=== PATIENT | male | born 1945 | race Caucasian/White ===

== ENCOUNTER 2017-08-31 21:32 | Observation (INO) ==
[2017-08-31 22:20] LABS: Basophils % 0.4 %; Eosinophils # 0.3 K/mcL (0.0-0.6); Eosinophils % 4.6 %; Hematocrit 42.5 % (37.5-50.1); Hemoglobin 14.6 g/dL (12.9-16.9); Immature Granulocytes % 0.4 % (0-4); Lymphocytes # 1.4 K/mcL (0.6-4.6); Mean Corpuscular HGB Conc 34.4 g/dL (31.6-35.5); Mean Corpuscular Hemoglobin 30.4 pg (28.0-33.3); Mean Corpuscular Volume 88.5 fL (83.0-100.0); Mean Platelet Volume 9.1 fL (9.4-12.4); Monocytes # 0.7 K/mcL (0.0-1.3); Monocytes % 12.4 %; Neutrophils # 3.1 K/mcL (1.6-8.9); Platelet Count 175 K/mcL (140-400); Red Cell Distribution Width 12.1 % (11.5-14.5); Segmented Neutrophils % 56.2 %
[2017-08-31 22:33] LABS: BUN/Creatinine Ratio 17 (6-26); Blood Urea Nitrogen 17 mg/dL (8-26); Calcium 8.9 mg/dL (8.6-10.8); Carbon Dioxide 23 mEq/L (19-29); Chloride 106 mEq/L (98-109); Glucose 101 mg/dL (70-99); Osmolality,Calculated 290 (280-300); Potassium 3.9 mEq/L (3.5-4.5); Sodium 139 mEq/L (136-145); eGFR For African Americans > 60 (> 60); eGFR For Non-African Americans > 60 (> 60)
[2017-08-31] MEDS ORDERED: Aspirin 81 MG TAB.CHEW PO ONE (22:48)
--- NOTE | 2017-09-01 00:33 | Emergency Department Note ---
Disposition Clinical Impression: Chest pain Qualifiers: Chest pain type: unspecified Qualified Code(s): R07.9 - Chest pain, unspecified Disposition: Admitted As Inpatient Condition: Good General Adult HPI - General Chief complaint: ED Chest Pain Stated complaint: chest pains, [place] Time Seen by Provider: 08/31/17 22:21 Source: patient Limitations: no limitations Nursing Notes Reviewed: Yes Vital Signs Reviewed: Yes - History of Present Illness HPI Narrative: 72-year-old male who presents with complaint of chest pain for 3 days. He does have a history of cardiac disease and has [address] He admits his pain is pressure-like. He has no hemoptysis, no radiation of pain. He has not had recent stress testing or cardiac catheterization. He does follow with [facility]. General: No acute distress HEENT: Pupils equal and reactive to light, extraoccular muscle movement is normal, TMS are clear bilaterally. Heart: RRR, No murmor rub or gallop Lungs: lungs clear, no wheezing, rales or ronchi. ABD: SNT, no focal areas or tenderness, no guarding or rebound tenderness. Extremities: No cyanosis, clubbing or edema Neuro: CN 2-12 in tact, no focal deficit. strength 5/5. Medical decision making EKG is nondiagnostic. Cardiac biomarkers are negative. Chest x-ray shows no acute findings. He is not tachycardic or hypoxic. He did refuse nitroglycerin administration due to previous history of headaches. I would admit given his history of stent placement and cardiac risk factors for possible provocative testing versus turning of cardiac biomarkers. Pain Scale: 3 - Related Data Home Medications Medication Instructions Recorded Confirmed Atorvastatin [Lipitor] 40 mg PO HS 07/16/15 08/30/17 Clopidogrel [Plavix] 75 mg PO DAILY 07/16/15 08/30/17 Omeprazole [PriLOSEC] 20 mg PO DAILY 07/16/15 08/30/17 Potassium Citrate [Urocit-K] 10 meq PO BID 02/10/16 08/30/17 Aspirin Enteric Coated [Aspirin EC] 81 mg PO DAILY 02/08/17 08/30/17 Inulin/Chromium Picolinate [Fiber 1 each PO DAILY 02/08/17 08/30/17 Gummies] Previous Rx's Medication Instructions Recorded Nitroglycerin 0.3 mg SL Q5MIN #10 tab.subl 07/16/15 Hydrocortisone 2.5% CREAM [Cortaid] 1 appl TP TID PRN #1 tube 02/08/17 Allergies Allergy/AdvReac Type Severity Reaction Status Date / Time Amoxicillin AdvReac Diarrhea Verified 08/30/17 13:58 carvedilol AdvReac Nausea Verified 08/30/17 13:58 Erythromycin Base AdvReac Diarrhea Verified 08/30/17 13:58 isosorbide AdvReac Hypotension Verified 08/30/17 13:58 metoprolol AdvReac Dizziness Verified 08/30/17 13:58 sulfamethoxazole AdvReac Diarrhea Verified 08/30/17 13:58 [From Bactrim] trimethoprim [From Bactrim] AdvReac Diarrhea Verified 08/30/17 13:58 All systems ED: reviewed and negative except as stated. Past Medical History - Past Medical History Medical history: Reports: cancer, coronary artery disease, hyperlipidemia Surgical history: Reports: angioplasty/stent, cholecystectomy, sinus surgery Psychiatric history: Reports: no psych history - Social History Smoking Status: Never smoker Smokeless Tobacco Status: No Alcohol use: Reports: none Drug use: Reports: none Physical Exam - General Limitations: no limitations General appearance: alert, in no apparent distress Course Vital Signs Temperature 98.1 F 08/31/17 21:56 Pulse Rate 65 08/31/17 21:56 Respiratory Rate 20 08/31/17 21:56 Blood Pressure 149/87 08/31/17 21:56 O2 Sat by Pulse Oximetry 94 08/31/17 21:56 Temperature 98.1 F 08/31/17 21:56 Pulse Rate 66 08/31/17 23:33 Respiratory Rate 16 08/31/17 23:33 Blood Pressure 118/85 08/31/17 23:33 O2 Sat by Pulse Oximetry 95 08/31/17 23:33 Oxygen Delivery Oxygen Delivery Room Air Medical Decision Making - Lab Data Result diagrams: 08/31/17 22:10 08/31/17 22:10 Lab Results 08/31/17 08/31/17 08/31/17 Range/Units 22:10 22:10 22:10 WBC 5.4 (4.3-11.1) K/mcL RBC 4.80 (4.19-5.50) M/mcL Hgb 14.6 (12.9-16.9) g/dL Hct 42.5 (37.5-50.1) % MCV 88.5 (83.0-100.0) fL MCH 30.4 (28.0-33.3) pg MCHC 34.4 (31.6-35.5) g/dL RDW 12.1 (11.5-14.5) % Plt Count 175 (140-400) K/mcL MPV 9.1 L (9.4-12.4) fL Immature Gran % 0.4 (0-4) % Seg Neutrophils % 56.2 % Lymphocytes % 26.0 % Monocytes % 12.4 % Eosinophils % 4.6 % Basophils % 0.4 % Neutrophils # 3.1 (1.6-8.9) K/mcL Lymphocytes # 1.4 (0.6-4.6) K/mcL Monocytes # 0.7 (0.0-1.3) K/mcL Eosinophils # 0.3 (0.0-0.6) K/mcL Basophils # 0.0 (0.0-0.2) K/mcL Sodium 139 (136-145) mEq/L Potassium 3.9 (3.5-4.5) mEq/L Chloride 106 (98-109) mEq/L Carbon Dioxide 23 (19-29) mEq/L BUN 17 (8-26) mg/dL Creatinine 1.00 (0.72-1.25) mg/dL Est GFR ( Amer) > 60 (> 60) Est GFR (Non-Af Amer) > 60 (> 60) BUN/Creatinine Ratio 17 (6-26) Glucose 101 H (70-99) mg/dL Calculated Osmolality 290 (280-300) Calcium 8.9 (8.6-10.8) mg/dL Troponin I 0.00 (0-0.03) ng/mL B-Natriuretic Peptide (0-100) pg/mL 08/31/ Range/Units 22:10 WBC (4.3-11.1) K/mcL RBC (4.19-5.50) M/mcL Hgb (12.9-16.9) g/dL Hct (37.5-50.1) % MCV (83.0-100.0) fL MCH (28.0-33.3) pg MCHC (31.6-35.5) g/dL RDW (11.5-14.5) % Plt Count (140-400) K/mcL MPV (9.4-12.4) fL Immature Gran % (0-4) % Seg Neutrophils % % Lymphocytes % % Monocytes % % Eosinophils % % Basophils % % Neutrophils # (1.6-8.9) K/mcL Lymphocytes # (0.6-4.6) K/mcL Monocytes # (0.0-1.3) K/mcL Eosinophils # (0.0-0.6) K/mcL Basophils # (0.0-0.2) K/mcL Sodium (136-145) mEq/L Potassium (3.5-4.5) mEq/L Chloride (98-109) mEq/L Carbon Dioxide (19-29) mEq/L BUN (8-26) mg/dL Creatinine (0.72-1.25) mg/dL Est GFR ( Amer) (> 60) Est GFR (Non-Af Amer) (> 60) BUN/Creatinine Ratio (6-26) Glucose (70-99) mg/dL Calculated Osmolality (280-300) Calcium (8.6-10.8) mg/dL Troponin I (0-0.03) ng/mL B-Natriuretic Peptide 30 (0-100) pg/mL
--- NOTE | 2017-09-01 03:05 | Internal Med History&Physical ---
<Narciso Deras - Last Filed: 09/01/17 04:19> Date of Encounter: 09/01/17 Time of Encounter: 02:15 Assessment and Plan (1) Chest pain Current visit: Yes Status: Acute Patient's chest pain is possibly due to unstable or variant angina. -Chest pain has improved since admission. -EKG and chest x-ray showed no acute findings -Cardiac biomarkers were negative. -Consult cardiology -NPO except ice chips for possible testing. Qualifiers: Chest pain type: unspecified Qualified Code(s): R07.9 - Chest pain, unspecified (2) CAD (coronary artery disease) Current visit: No Status: Acute Patient has a known history of coronary artery disease. -He has had several stents in the past. -Patient does see a steffen house supervisor regularly. -Patient refused nitroglycerin on admission due to his previous history of headaches. Qualifiers: Qualified Code(s): I25.10 - Atherosclerotic heart disease of [place] coronary artery without angina pectoris (3) HTN (hypertension) Current visit: No Status: Acute Patient has known history of hypertension. -Patient's blood pressure on admission was 149/87. -Continued to monitor vital signs. Qualifiers: Qualified Code(s): I10 - Essential (primary) hypertension (4) Hyperlipidemia Current visit: No Status: Acute Patient has a known history of hyperlipidemia. -Normally takes Lipitor at home. -Continue home meds. -Follow up with steffen house supervisor in the outpatient setting. Qualifiers: Qualified Code(s): E78.5 - Hyperlipidemia, unspecified Internal Medicine - H&P: HPI Chief complaint: Chest pain Admitted From: Home History of present illness: Mr. Couch is a 72 year old male with a past medical history of prostate cancer, coronary artery disease, hyperlipidemia, hypertension, and GERD presented to the emergency room with a chief complaint of chest pain of 3 days duration. Patient states that his chest pain has gotten progressively worse over the past 2 days. Patient says that he was not exerting himself more than usual, and that he was going about his daily routine and this pain started. Patient states that he has had this pain several times before, and has received cardiac stents in the past. Patient describes the pain as a pressure-like pain located in the center of the chest near the sternum. His pain is exacerbated with exhalation. Patient's pain has improved since his admission to the hospital. Patient admits that for the last 9 years, he has experienced shortness of breath with exertion. He states that they have all been unable to determine why this happens. During this visit however, patient has not had any shortness of breath. Patient's pain is not affected by exertion. He denies any radiation of pain, diaphoresis, nausea, vomiting, fever, or chills. Past Med Surg Social Fam HX - Past Medical History Medical history: cancer, coronary artery disease, hyperlipidemia Psychiatric history: no psych history - Past Surgical History Surgical History: angioplasty/stent, cholecystectomy, sinus surgery - Social History Smoking Status: Never smoker Smokeless Tobacco Status: No Alcohol use: none Drug use: none - Family History Mother Adopted: [place]: Ammy Dos Santos Family Member Ethnicity: Non- Living Status: Age at : 94 Cause of : Alzheimer's disease Hx Family Cardiac Disorders: Yes (irregular heart rhythm) Hx Family Respiratory Disorders: No Hx Family Cancer: No Hx Family GI Disorders: No Hx Family Endocrine Disorder: No Hx Family Neuromuscular Disorders: No Hx Family Neurologic Disorders: Yes (Alzheimer's disease) Hx Family HEENT Disorders: No Hx Family Autoimmune Disorders: No Father Adopted: [place]: Stalin Hernandez Family Member Ethnicity: Non- Living Status: Age at : 75 Hx Family Cardiac Disorders: Yes (possible heart attack) Hx Family Respiratory Disorders: No Hx Family Cancer: No Hx Family GI Disorders: Yes (prostate issues) Hx Family Endocrine Disorder: No Hx Family Neuromuscular Disorders: No Hx Family Neurologic Disorders: No Hx Family HEENT Disorders: No Hx Family Autoimmune Disorders: No Internal Medicine - H&P: Meds Atorvastatin [Lipitor] 40 mg PO HS 07/16/15 [History] Clopidogrel [Plavix] 75 mg PO DAILY 07/16/15 [History] Omeprazole [PriLOSEC] 20 mg PO DAILY 07/16/15 [History] Potassium Citrate [Urocit-K] 10 meq PO BID 02/10/16 [History] Aspirin Enteric Coated [Aspirin EC] 81 mg PO DAILY 02/08/17 [History] Hydrocortisone 2.5% CREAM [Cortaid] 1 appl TP TID PRN #1 tube 02/08/17 [Rx] Inulin/Chromium Picolinate [Fiber Gummies] 1 each PO DAILY 02/08/17 [History] Nitroglycerin 0.3 mg SL Q5MIN PRN 09/01/17 [History] 3 Allergy/AdvReac Type Severity Reaction Status Date / Time Amoxicillin AdvReac Diarrhea Verified 08/30/17 13:58 carvedilol AdvReac Nausea Verified 08/30/17 13:58 Erythromycin Base AdvReac Diarrhea Verified 08/30/17 13:58 isosorbide AdvReac Hypotension Verified 08/30/17 13:58 metoprolol AdvReac Dizziness Verified 08/30/17 13:58 sulfamethoxazole AdvReac Diarrhea Verified 08/30/17 13:58 [From Bactrim] trimethoprim [From Bactrim] AdvReac Diarrhea Verified 08/30/17 13:58 All Systems PM: A 10-system review of systems was performed and is negative for pertinent findings except as documented above in the HPI. - Constitutional Constitutional: no chills, no fever(s), no night sweats - EENT Eyes: no change in vision - Cardiovascular Cardiovascular ROS IM: chest pain, no diaphoresis, no dyspnea, no lightheadedness, no palpitations, no syncope - Respiratory Respiratory: no cough, no dyspnea, no wheezing, no excessive phlegm production - Gastrointestinal Gastrointestinal: no abdominal pain, no diarrhea, no nausea, no vomiting - Musculoskeletal Musculoskeletal ROS IM: no numbness, no tingling - Integumentary Integumentary IM: no rash - Hematologic/Lymphatic Hematologic/Lymphatic: no easy bruising - Constitutional Vitals: Temp Pulse Resp BP Pulse Ox 98.0 F 55 17 135/87 97 09/01/17 00:33 09/01/17 00:33 09/01/17 00:33 09/01/17 00:33 09/01/17 00:33 General appearance: Present: A&O X 3, no acute distress, answers questions appropriately - Head Head exam: Present: atraumatic, normal inspection, normocephalic - Neck Neck exam general surgery: Present: supple, trachea midline. Absent: lymphadenopathy - Respiratory Respiratory exam: Present: CTAB. Absent: accessory muscle use, rales, rhonchi, wheezes - Cardiovascular Cardiovascular exam: Present: RRR, +S1, +S2. Absent: diastolic murmur, gallop, rubs, systolic murmur - Extremities Exam Extremities exam: Present: warm, radial pulses palpable and symmetrical. Absent : calf tenderness, cyanotic, pedal edema - Skin Skin exam: Present: dry, intact Internal Med - H&P Results - Labs CBC & Chem 7: 08/31/17 22:10 08/31/17 22:10 <Gunnar Rosas - Last Filed: 09/01/17 06:36> Date of Encounter: 09/01/17 Internal Medicine - H&P: HPI History of present illness: Mr. Couch is a 72 year old male All Systems PM: A 10-system review of systems was performed and is negative for pertinent findings except as documented above in the HPI. - Constitutional Vitals: Temp Pulse Resp BP Pulse Ox 97.6 F 59 17 136/88 96 09/01/17 03:13 09/01/17 03:13 09/01/17 03:13 09/01/17 03:13 09/01/17 03:13 Internal Med - H&P Results - Labs CBC & Chem 7: 08/31/17 22:10 08/31/17 22:10 - Attending Attestation I personally interviewed and examined this patient and my medical decision- making was reviewed with the Resident Physician. I agree with the documented findings, disposition and treatment plan as described except to the extent set forth below. Patient with a significant history of CAD and underwent his most recent left heart cath in 06/2015 which reported the following; LMCA; free of disease, LAD; mid LAD has patent stents from prior, 1st diagonal patent stents from prior, 40- 50% instant restenosis in the mid LAD, circumflex; free of disease, RCA free of disease, no intervention was done and medical management was recommended, he now comes in with unstable angina, due to his high risk we will get cardiology to weigh in Gunnar Rosas MD, MPH Hospitalist
[2017-09-01] MEDS ORDERED: Naloxone 0.4 MG/ML INJ IVP PRN (06:26)
[2017-09-01] MEDS: Aspirin Enteric Coated 81 MG Tablet PO SCH (07:47)
[2017-09-01] MEDS ORDERED: *HR* Morphine 2 MG/ML SYRINGE IVP ONE (11:05)
--- NOTE | 2017-09-01 12:25 | Cardiology Consult Note ---
Date of Encounter: 09/01/17 Time of Encounter: 12:17 Assessment and Plan (1) Unstable angina Current Visit: No Status: Acute Chest pain concerning for unstable angina. Increasing chest pain and symptoms for one month. EKG shows SR with RBBB. Troponin negative. [place] ruled out. Known CAD. Chest pain same as previous time stent needed. Declines stress test due to SOB with any activity and bad experience with previous stress test. Patient prefers proceeding WITH [facility]. R/B/A of LHC discussed. WIll discuss further with senior electrical project manager. Continue asa, statin, plavix. Not on bb. HR noted to be in the upper 50's- 60. Reports allergy to imdur and NTG due to side effects. (2) CAD (coronary artery disease) Current Visit: No Status: Acute H/o PCI to the LAD. Last [facility] 2014 showed ISR in the mLAD. 40-50% stenosis. FFR 0.83 at that time. See plan above. Qualifiers: Qualified Code(s): I25.10 - Atherosclerotic heart disease of [place] coronary artery without angina pectoris Discussion w patient/family: The assessment and plan as outlined above was discussed with the patient and/or family members who expressed understanding and agreement. All questions were answered. Thank you for involving us in the care of your patient. Please call with any questions. History of Present Illness Consult date: 09/01/17 Requesting physician: Lay Rosenberg Consult reason: Chest pain Chief complaint: Chest pain History of present illness: Mr. Couch is a 72 year old male with a history of CAD s/p PCI to his LAD and HLD. He presents with the c/o feeling fatigue and unwell for one month. C/o chest pain starting one week ago radiating across his chest. Pain continues to increase with intensity and frequency. His pain occurs at rest. He states that his pain is exactly how it felt when he previously needed stent. He states that he cannot take NTG due to side effects. His pain improves with morphine. Cardiology consulted for chest pain. He declined stress test due to bad experience with both exercise stress test and pharmacologic stress test. Last [facility] was 2014 that showed ISR in the mLAD. FFR 0.83. There was a 40-50% stenosis. No significant disease otherwise. Past Med Surg Social Fam HX - Past Medical History Medical history: cancer, coronary artery disease, hyperlipidemia Psychiatric history: no psych history - Past Surgical History Surgical History: angioplasty/stent, cholecystectomy, sinus surgery - Social History Smoking Status: Never smoker Smokeless Tobacco Status: No Alcohol use: none Drug use: none - Family History Mother Adopted: [place]: Ammy Dos Santos Family Member Ethnicity: Non- Living Status: Age at : 94 Cause of : Alzheimer's disease Hx Family Cardiac Disorders: Yes (irregular heart rhythm) Hx Family Respiratory Disorders: No Hx Family Cancer: No Hx Family GI Disorders: No Hx Family Endocrine Disorder: No Hx Family Neuromuscular Disorders: No Hx Family Neurologic Disorders: Yes (Alzheimer's disease) Hx Family HEENT Disorders: No Hx Family Autoimmune Disorders: No Father Adopted: [place]: Stalin Hernandez Family Member Ethnicity: Non- Living Status: Age at : 75 Hx Family Cardiac Disorders: Yes (possible heart attack) Hx Family Respiratory Disorders: No Hx Family Cancer: No Hx Family GI Disorders: Yes (prostate issues) Hx Family Endocrine Disorder: No Hx Family Neuromuscular Disorders: No Hx Family Neurologic Disorders: No Hx Family HEENT Disorders: No Hx Family Autoimmune Disorders: No Medications and Allergies Atorvastatin [Lipitor] 40 mg PO HS 07/16/15 [History] Clopidogrel [Plavix] 75 mg PO DAILY 07/16/15 [History] Omeprazole [PriLOSEC] 20 mg PO DAILY 07/16/15 [History] Potassium Citrate [Urocit-K] 10 meq PO BID 02/10/16 [History] Aspirin Enteric Coated [Aspirin EC] 81 mg PO DAILY 02/08/17 [History] Inulin/Chromium Picolinate [Fiber Gummies] 1 each PO DAILY 02/08/17 [History] 3 Allergy/AdvReac Type Severity Reaction Status Date / Time Amoxicillin AdvReac Diarrhea Verified 08/30/17 13:58 carvedilol AdvReac Nausea Verified 08/30/17 13:58 Erythromycin Base AdvReac Diarrhea Verified 08/30/17 13:58 isosorbide AdvReac Hypotension Verified 08/30/17 13:58 metoprolol AdvReac Dizziness Verified 08/30/17 13:58 sulfamethoxazole AdvReac Diarrhea Verified 08/30/17 13:58 [From Bactrim] trimethoprim [From Bactrim] AdvReac Diarrhea Verified 08/30/17 13:58 All Systems Review: A 10-system review of systems was performed and is negative for pertinent findings except as documented above in the HPI. Physical Examination Vital Signs, Last 4 Hours Temp Pulse Resp BP Pulse Ox 09/01/17 10:48 97.7 F 62 16 141/88 98 General: Conversant, No Apparent Distress HEENT: Atraumatic, Normocephaly, Mucus Membranes Moist Neck: No JVD, Normal carotid pulses Cardiac: Reg Rate and Rhythm, Normal S1 and S2, No Murmur Lungs: Normal Breath Sounds, No Wheeze, Rales, Rhonchi Neuro: Alert and responsive, No focal deficits noted Abdomen: Soft, Non-Tender Skin: No rashes noted on visualized skin Musculoskeletal: No Chest Wall Tenderness Extremities: No Clubbing, No Cyanosis, No Edema, Normal Pulses Results 08/31/17 22:10 08/31/17 22:10 Lab Results 09/01/17 09/01/17 06:59 11:42 Troponin I 0.02 0.00 - Imaging and Cardiology Cardiac cath: report reviewed - EKG Interpretation EKG results cardiology: personally reviewed (SR with RBBB) Consult Discharge Plan - Plan Referrals: Teri Bocanegra, P[employer]ING [employer] MANAGER [Primary Care Provider] -
[2017-09-01] MEDS ORDERED: Verapamil 5 MG/2 ML VIAL ONE (16:32)
[2017-09-01] MEDS ORDERED: 0.9 % Sodium Chloride 1,000 ML ONE ×2 (16:32→17:22)
[2017-09-01] MEDS ORDERED: Nitroglycerin 1,000 MCG/10 ML VIAL IV ONE (16:32)
[2017-09-01] MEDS ORDERED: Heparin 1,000 UNITS/500 mL NS 500 ML ONE (16:32)
[2017-09-01] MEDS ORDERED: *HR* Heparin 10,000 UNIT/10 ML VIAL ONE (16:32)
--- NOTE | 2017-09-01 17:10 | Pre-Sedation Evaluation ---
Pre-sedation evaluation - Pre-sedation checklist Date of procedure: 09/01/17 Procedure: Heart Cath Recent Vitals: Last Vital Signs Temp 97.7 F 09/01/17 10:48 Pulse 62 09/01/17 10:48 Resp 16 09/01/17 10:48 BP 141/88 09/01/17 10:48 Pulse Ox 98 09/01/17 10:48 H&P (including ROS) documented in medical record: Yes Previous reaction to sedatives/anesthetics: No Dietary Status: NPO after Midnight Airway Assessment: Patient can open mouth completely, TMJ function normal Dentition: full dentition ASA Classification *see protocol: CLASS II-Mild systemic disease Plan of Care: Pt appropriate candidate for procedure/moderate/conscious sedation , Risks/benefits of procedure/sedation discussed w/ patient/family
[2017-09-01] MEDS ORDERED: *HR* FentaNYL (PF) 100 MCG/2 ML VIAL ONE (17:11)
[2017-09-01] MEDS ORDERED: *HR* Midazolam HCl 2 MG/2 ML VIAL ONE (17:11)
--- NOTE | 2017-09-01 17:46 | Event Note ---
Date of Encounter: 09/01/17 Time of Encounter: 17:45 - Cardiology Event Note [facility] - no significant changes compared to last year. Patent LAD/Dx stent. Normal EF. Acceptable for discharge from [facility] standpoint at 2130.
--- NOTE | 2017-09-01 18:01 | Invasive Diagnostic Lab Proc ---
Name: Constantin Couch Date of Study: 09/01/2017 Date: 1945 Ht: 72.0in Medical Record#: [id number] Age: 72 Wt: 224.87lb Gender: Male BSA: 2.24 Order #: [id number] BMI: 30.46 Physicians Procedure Physician: Shaheen Bowden MD, [facility] Referring MD: Referring MD: Staff Name Position Time In JeffKellie RN Monitor 05:19 PM Ignacia Luna RN Monitor 05:19 PM Reba Feldman RN Senior Windows Engineer 05:19 PM Al Cordoba RT (R) Scrub 05:19 PM Indications Indication Unstable Angina Procedures Performed Procedure L HRT ARTERY/VENTRICLE ANGIO Pre-Procedure Checklist Informed consent is complete signed and on chart. H&P is on chart. ID band is on and ID verified with patient. Patient NPO for procedure The procedure was described for the patient and questions were answered. Blood Pressure: 141/88 ECG is on chart. Plan of Care Patient will tolerate the procedure without complications. Adequate level of comfort will be maintained. Hemodynamics will remain stable Patient will recover from procedure without complications. Respiratory function will be maintained. Cardiac rhythm will remain stable. Patient temperature will be maintained. Patient and/or family have verbalized understanding of the procedure. Patient Education Chief Complaint/Reason for Test: Cardiac Cath Developmental Category: Geriatric (65+ years) Developmentally Appropriate for Age: Yes Learning Barriers: None Education Needs: Procedure Education Method: Verbal Information Taught: Cardiac Cath Educational Evaluation: Able to repeat information Intravenous Access Time IV Size Location DC'd Fluid/Drip Rate Units RN 04:55 PM 20g 1 /" Patent On Arrival Lt Wrist Allergies coreg Erythromycin Base sulfamethoxazole trimethoprim Erythromycin Amoxicillin Vital Signs Time BP (mmHg) HR (bpm) O2 Sat. RR (bpm) LOC 04:56 PM 141 / 88 62 98 % 16 5 = Fully awake and oriented or at pre-proc level 05:25 PM / % 5 = Fully awake and oriented or at pre-proc level 05:25 PM / % 4 = Oriented but drowsy 05:25 PM 149 / 85 61 98 % 20 05:29 PM 130 / 82 71 96 % 18 05:34 PM 105 / 66 70 91 % 20 05:39 PM 105 / 74 74 93 % 23 Procedural Medications Time Medication Dose Units Method Given By 05:21 PM Oxygen 2 L/min nasal cannula Reba Feldman RN 05:26 PM Versed 2 mg Intravenous Reba Feldman RN 05:26 PM Fentanyl 50 mcg Intravenous Reba Feldman RN 05:31 PM Lidocaine 2% 0.5 ml Subcutaneous Shaheen Bowden MD, FACC 05:33 PM Heparin 4000 units Nitroglycerin 200 mcg Verapamil 2.5 mg Intraarterial Shaheen Bowden MD, FAC [place] Preprocedure Postprocedure Activity 2- Moves 4 extremities sustained head lift Activity 2- Moves 4 extremities sustained head lift Circulation 2- SBP +/= 20 points of pre-anesthetic level Circulation 2- SBP +/= 20 points of pre-anesthetic level Consciousness 2- Awake and alert oriented x 3 Consciousness 2- Awake and alert oriented x 3 O2 Saturation 2- Able to maintain O2 satruation of 92% on room air O2 Saturation 2- Able to maintain O2 satruation of 92% on room air Respiratory 2- Able to deep breathe and cough well Respiratory 2- Able to deep breathe and cough well Total Score 10 Total Score 10 Contrast Agent: Isovue Diagnostic Contrast: 56 ml Total Contrast: 56 ml Fluoro Dose: 260 mGy Procedure Log Time Note Enter By 05:19 PM Pt arrived to [facility] [place] [facility] at 17:19 [facility] 05:19 PM Kellie Aguilar RN Position: Monitor Time in: 17:19 mm 05:19 PM Ignacia Luna RN Position: Monitor Time in: 17:19 [facility] 05:19 PM Reba Feldman RN Position: Senior Windows Engineer Time in: 17:19 05:20 PM Al Cordoba RT (R) Position: Scrub Time in: 17:19 mm 05:20 PM Patient charges- Angio tray pack, Navilyst 3mm J, Pulse Oximetry and ACIST tubing and transducer [facility] 05:20 PM Case Delayed No mm 05:20 PM Hair removed from procedure site in procedure lab using clippers. Right wrist & Right groin prepped with Chloraprep by Al Cordoba RT (R), safety strap applied then patient was draped. Skin intact. mm 05:20 PM Physican paged/called 17:20. [email or web address] 05:20 PM Physican responded and notified patient is ready 17:20 [facility] 05:20 PM Physician arrived 17:20 [facility] 05:20 PM Meet and greet completed [facility] 05:20 PM Sign in performed according to hospital policy. 05:20 PM Procedure start 17:20 05:20 PM Case Start 05:20 PM CathStat 05:21 PM Time: 17: Oxygen on at 2 L/min per nasal cannula by Reba Feldman RN [facility] 05[facility]23 PM Vitals capture started with the following parameters, Patient=Adult, Interval=5 min, Initial Clqtpeiu=799 mmHg, Deflation Rate=5 mmHg, Cuff placed on Left Arm 05:24 PM Recorded ECG: HR=63 Condition=Condition 1 05:25 PM HR=61 bpm, OORT=442/85 mmhg, SpO2=98.0 %, Resp=20 B/min, Comment=SB 05:25 PM Time: 17:25 Patient comfortable and pain free: Yes [facility] : PM Time: 17:25LOC: 5 = Fully awake and oriented or at pre-proc level [facility] 05:25 PM Clinical Presentation: Unstable angina [facility] 05: PM Time: 17:26 Versed 2 mg Intravenous Given by Reba Feldman RN [facility]: PM Time: 17:26 Fentanyl 50 mcg Intravenous Given by Reba Feldman RN [facility] 05:29 PM HR=71 bpm, YFSI=775/82 mmhg, SpO2=96.0 %, Resp=18 B/min, Comment=SB 05:30 PM CathStat 05:31 PM Time: 17:31 0.5 ml Lidocaine 2% to right radial Subcutaneous Given by Shaheen Bowden MD, [facility] 05:33 PM Access obtained by percutaneous puncture. 6Fr 10cm Terumo Glidesheath sheath placed in right Radial artery. [id number] [facility] 05:33 PM Time: 17:33 Patient given 4,000 units Heparin, 200 mcg Nitroglycerin, and 2.5 mg Verapamil Intraarterial by Shaheen Bowden MD, [facility] 05:33 PM 0.035 145cm Navilyst 3mmJ wire [id number] [facility] 05:34 PM 5Fr TIG catheter inserted over the wire DNC tsoummers 05:34 PM HR=70 bpm, MSLV=181/66 mmhg, SpO2=91.0 %, Resp=20 B/min, Comment=SB 05:35 PM Catheter selectively placed in left ventricle tsoummers 05:35 PM Pressure channel 3 zero failed. 05:35 PM Pressure channel 3 zero failed. 05:35 PM Pressure channel 3 zero failed. 05:35 PM Pressure channel 3 zeroed. 05:35 PM Bolus angiogram of left Ventricle complete: 10 ml/sec for a total of 30 mls tsoummers 05:35 PM Recorded Pressure: LV, QW=559, Condition=Condition 1 (Left Ventricle) LV 71/37/37 05:36 PM Recorded Pressure: LV, Ao, HR=82, Condition=Condition 1 (Left Ventricle) LV 82/10/26, (Aorta) Ao 96/58/71 05:37 PM Recorded Pressure: Ao, HR=73, Condition=Condition 1 (Aorta) Ao 84/68/75 05:37 PM RCA angiography performed in multiple views. [email or web address] 05:37 PM Recorded Pressure: Ao, HR=75, Condition=Condition 1 (Aorta) Ao 84/66/74 05:38 PM LCA angiography performed in multiple views. [email or web address] 05:38 PM Recorded Pressure: Ao, HR=73, Condition=Condition 1 (Aorta) Ao 81/68/74 05:39 PM HR=74 bpm, MDOS=973/74 mmhg, SpO2=93.0 %, Resp=23 B/min, Comment=SB 05:41 PM Time: 17:25LOC: 4 = Oriented but drowsy tsoummers 05:41 PM Time: 17:25 Patient comfortable and pain free: Yes tsoummers 05:42 PM Catheter removed [email or web address] 05:42 PM Wire removed tsoummers 05:42 PM Coronary Dominance: right tsoummers 05:43 PM Lesion found in Proximal RCA. Pre Stenosis: 50 Pre JERMAINE Flow: tsoummers 05:43 PM Lesion found in Mid LAD. Pre Stenosis: 50 Pre JERMAINE Flow: tsoummers 05:44 PM Right Coronary, Right Posterior Descending Arteries with Right Posterolateral and Acute Marginal branches with 50 % stenosis. If graft is supplying this area, 0 % stenosis tsoummers 05:44 PM Mid/Distal Left Anterior Descending Coronary Artery and diagonal branches with 50% stenosis. If graft is supplying this area, 0 % stenosis tsoummers 05:44 PM Procedure completed at 17:44 tsoummers 05:44 PM Sign out completed: Radiation Dose 259.73 mGy Fluoro Time: 2.0 Isovue 370 - 200ml contrast 56 ml given by Shaheen Bowden MD, FACC. Complications: NoneCardiac Rehab Consult needed: NoConfirmed administered medications: Yes tsoummers 05:44 PM Isovue 370 - 200ml,1 Bottle(s) used. tsoummers 05:45 PM Arterial sheath pulled, Vasc Band closure device used and was Successful S/N. tsoummers 05:45 PM 11 ml air in Vasc Band. tsoummers 05:45 PM Post ECG NSR tsoummers 05:45 PM Post Blood Pressure 129/83 tsoummers 05:46 PM 17:45 Post Pulses Rt Radial 1+ tsoummers 05:46 PM Information taught Cardiac Cath tsoummers 05:46 PM Education needs Procedure, Plan of Care, and Responsibilities of Patient in Care tsoummers 05:46 PM Learning barriers :None tsoummers 05:46 PM Education Methods Verbal tsoummers 05:46 PM Education evaluation Able to repeat information tsoummers 05:46 PM Site status No bleeding/hematoma - Rt Wrist as reported by Al Cordoba RT (R) at 17:46 tsoummers 05:47 PM Plavix, Effient or Brilinta given No tsoummers 05:47 PM Delay to floor No tsoummers 05:47 PM Patient out of room: 17:47 tsoummers 05:47 PM Family placed in consult room. tsoummers 05:47 PM Complications: None tsoummers 05:47 PM Fluoro Time: 2 tsoummers 05:47 PM Isovue 370 - 200ml contrast 56 ml given by Shaheen Bowden MD, FACC. tsoummers 05:47 PM Radiation Dose 259.73 mGy tsoummers 05:48 PM Report given to Angela TONEY Pt taken to [facility] Room #23. 17:47 tsoummers Complications Complication None Hemodynamics Pressures Site Systolic/A Wave Diastolic/V Wave Mean LV 71 37 37 LV 82 10 26 AO 96 58 71 AO 84 68 75 AO 84 66 74 AO 81 68 74 Post Procedure Information Blood Pressure: 129/83 mmHg Rhythm: NSR Post procedural instructions were given Closure Device Time Device Success/Fail 09/01/2017 5:45:00 PM Mechanical Compression Successful Site Checks Time Location Status Staff Sheath In? Note 05:46 PM Rt Wrist No bleeding/hematoma Al Cordoba RT (R) Pulses Time Site Pre-Procedure Post-Procedure Note 09/01/2017 4:56:00 PM Bilateral DP & PT 2+ 5:45:00 PM Rt Radial 1+ Updated by Kellie Aguilar RN on 09/01/2017 5:53:52 PM electronically signed on 09/01/2017 5:54:42 PM with status of Final
--- NOTE | 2017-09-01 20:19 | Electrocardiograph Report ---
[place] [id number] Test Date: 2017-08-31 Pat Name: Constantin Couch Department: 104 Room: [facility] Gender: M Registered Medical Transcriptionist: [facility] : 1945 Requested By: River Lewis Order Number: [id number] Reading MD: Shaheen Bowden MD Measurements Intervals [place] Rate: 70 P: 51 [place]: 173 QRS: 2 QRSD: 152 T: 17 QT: 419 QTc: 440 Interpretive Statements SINUS RHYTHM RIGHT BUNDLE BRANCH BLOCK Electronically Signed On 09-01-2017 20:17:57 EDT by Shaheen Bowden MD
--- NOTE | 2017-09-01 21:07 | Event Note ---
Date of Encounter: 09/01/17 Time of Encounter: 20:58 (Patient seen at approx 1030. Note enetred at 2108 after LHC and chart reviewed ) Constantin Couch is a 72 y/o king with PMH CAD, HTN and HLD who presented to [facility] on 09/01/2017 with complaints of chest pain. He underwent LHC that showed no new CAD, He was cleared for discharge at 2130 on 09/01/2017 however his had left for the evening and he had no ride home 1. CAD: with hx 3 previous stents. Serial troponin negative, EKG without acute ST changes. Patient declined stress test; reported last 3 cardiac event work- ups were negative and he required stenting. 09/01/2017 LHC unchanged from previous, no new CAD apparent. Cont medical management. Recommend follow up with primary Commercial Representative 2. HTN: per hx. BP controlled. Cont BP medications 3. HLD: per hx. Cont home statin
[2017-09-02 04:16] VITALS: BP 94/52
[2017-09-02 05:10] LABS: BUN/Creatinine Ratio 19 (6-26); Blood Urea Nitrogen 16 mg/dL (8-26); Calcium 8.6 mg/dL (8.6-10.8); Carbon Dioxide 23 mEq/L (19-29); Chloride 107 mEq/L (98-109); Glucose 90 mg/dL (70-99); Magnesium 2.3 mg/dL (1.6-2.6); Osmolality,Calculated 289 (280-300); Phosphorous 2.9 mg/dL (2.3-4.7); Sodium 139 mEq/L (136-145); eGFR For African Americans > 60 (> 60); eGFR For Non-African Americans > 60 (> 60)
[2017-09-02 05:35] LABS: Potassium 4.3 mEq/L (3.5-4.5)
--- NOTE | 2017-09-02 07:53 | Discharge Summary ---
Date of Encounter: 09/02/17 Time of Encounter: 07:47 - Discharge Diagnosis (1) CAD (coronary artery disease) Priority: Primary Status: Acute Comments: Constantin Couch is a 72 y/o male with PMH CAD, HTN and HLD who presented to [facility] on 09/01/2017 with complaints of chest pain. He underwent a LHC that showed no new CAD. His chest pain resolved and he was discharged home in stable condition with outpatient follow-up. 1. CAD: with hx 3 previous stents. Presented with chest pain that started 1 week prior to presentation, pain was initially intermittent occurring with and without exertion and now constant. Patient reported symptoms were similar to previous episodes of chest pain resulting and PCI. Serial troponin negative, EKG without acute ST changes. Evaluated by cardiology who recommended stress test however patient declined. LHC with patent LAD/Dx stent, normal EF and unchanged from previous LHC. Suspect atypical chest pain secondary to musculoskeletal etiology as chest pain was reproducible with raising arms an on palpation. Cont home ASA, Plavix and statin. 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 HTN: per hx. BP controlled. Cont BP medications 3. HLD: per hx. Cont home statin 4. Hypokalemia: per hx. on potassium supplements at home. Patient reports taking potassium for quite some time. K 4.7 at discharge. Continue home potassium supplement, recommend repeat CMP within 1 week with PCP. Qualifiers: Coronary Disease-Associated Artery/Lesion type: [place] artery [place] vs. transplanted heart: [place] heart Associated angina: without angina Qualified Code(s): I25.10 - Atherosclerotic heart disease of [place] coronary artery without angina pectoris (2) GERD (gastroesophageal reflux disease) Priority: Primary Status: Acute Qualifiers: Esophagitis presence: without esophagitis Qualified Code(s): K21.9 - Gastro -esophageal reflux disease without esophagitis (3) HTN (hypertension) Priority: Primary Status: Acute Qualifiers: Hypertension type: essential hypertension Qualified Code(s): I10 - Essential (primary) hypertension - Discharge Medications Home Medications: Atorvastatin [Lipitor] 40 mg PO HS 07/16/15 [History] Clopidogrel [Plavix] 75 mg PO DAILY 07/16/15 [History] Omeprazole [PriLOSEC] 20 mg PO DAILY 07/16/15 [History] Potassium Citrate [Urocit-K] 10 meq PO BID 02/10/16 [History] Aspirin Enteric Coated [Aspirin EC] 81 mg PO DAILY 02/08/17 [History] Inulin/Chromium Picolinate [Fiber Gummies] 1 each PO DAILY 02/08/17 [History] Allergies/Adverse Reactions: 3 Allergy/AdvReac Type Severity Reaction Status Date / Time Amoxicillin AdvReac Diarrhea Verified 08/30/17 13:58 carvedilol AdvReac Nausea Verified 08/30/17 13:58 Erythromycin Base AdvReac Diarrhea Verified 08/30/17 13:58 isosorbide AdvReac Hypotension Verified 08/30/17 13:58 metoprolol AdvReac Dizziness Verified 08/30/17 13:58 sulfamethoxazole AdvReac Diarrhea Verified 08/30/17 13:58 [From Bactrim] trimethoprim [From Bactrim] AdvReac Diarrhea Verified 08/30/17 13:58 Procedures/tests Complete & Pending: Procedures Performed prior 72 hours Category Date Time Status CL Cardiac Catheterization [CL] Routine Ad Terminal Makeup Operator 09/01/17 14:25 Ordered EKG [ECG 12 lead ECG] [ECG] Stat Y 09/01/17 11:08 Ordered Date of admission: 08/31/17 23:54 Primary care physician: Teri Bocanegra CNP Consults: 09/01/17 07:51 Consult to Pastoral Services [CONS] Routine Comment: pt requesting a bible 09/01/17 07:58 Consult to Pastoral Services [CONS] Routine Comment: Discharging clinician: Lay Rosenberg Anticipated date of discharge: 09/02/17 - Patient Status Disposition: Home, Self-Care Condition: Good Functional capacity at discharge: independent ambulation Overall status at discharge: patient is back to baseline - Discharge Instructions Instructions: Coronary Artery Disease (DC), Chronic Hypertension (DC) Follow Up With: Teri Bocanegra CNP [Primary Care Provider] - Forms: ED Satisfaction Letter - Diet and Activity Activity: resume usual activities as tolerated Diet: advance to your usual diet Interval History: Seen and examined at bedside. Reviewed left heart catheter with patient and he is aware of unremarkable findings. Patient says he feels better today, no chest pain or shortness of breath on exam. He wants to go home. Advised patient that he would need to follow up with primary private duty nurse and primary care physician within one to 2 weeks of discharge. Patient advised if he had symptom recurrence, acute chest pain or shortness of breath that he should return to the emergency room. Hospital course: See assessment and plan for hospital course - Time Spent with Patient Total time spent providing and/or coordinating discharge services: Less than 30 minutes - Constitutional Vitals: Temp Pulse Resp BP Pulse Ox 98.1 F 66 15 94/52 93 09/02/17 04:12 09/02/17 04:12 09/02/17 04:12 09/02/17 04:12 09/02/17 04:12 General appearance: Present: A&O X 3, no acute distress, answers questions appropriately - Head Head exam: Present: atraumatic, normocephalic - Eye Eye exam: Present: PERRL, conjuntiva pink, sclera anicteric Pupils: Present: PERRL - Neck Neck exam general surgery: Present: supple, trachea midline. Absent: lymphadenopathy - Respiratory Respiratory exam: Present: CTAB. Absent: accessory muscle use, rales, rhonchi, wheezes - Cardiovascular Cardiovascular exam: Present: RRR, +S1, +S2. Absent: diastolic murmur, gallop, rubs, systolic murmur - GI/Abdominal GI/Abdominal exam: Present: normal bowel sounds, soft, no peritoneal signs. Absent: distended, tenderness - Extremities Exam Extremities exam: Present: warm, radial pulses palpable and symmetrical. Absent : calf tenderness, cyanotic, pedal edema - Neurological Exam Neurological exam: Present: CN II-XII intact, oriented X3, no focal deficits. Absent: pronater drift, facial droop, speech deficit - Skin Skin exam: Present: dry, intact
[2017-09-02] MEDS: Aspirin Enteric Coated 81 MG Tablet PO SCH (09:28)
--- NOTE | 2017-09-02 19:55 | Electrocardiograph Report ---
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
== END 2017-09-02 12:38 | disposition home or self-care (01) ==
LOC: EMEROO 21:32 → 3NENU 21:32
PROVIDERS: ADMIT Internal Medicine; ATTEND Internal Medicine

== ENCOUNTER 2022-02-23 10:24 | Observation (INO) ==
[2022-02-23] MEDS ORDERED: Aspirin 81 MG TAB.CHEW PO ONE (11:07)
[2022-02-23 11:36] LABS: Basophils % 0.2 %; Eosinophils # 0.1 K/mcL (0.0-0.6); Eosinophils % 2.5 %; Hematocrit 43.1 % (37.5-50.1); Hemoglobin 14.6 g/dL (12.9-16.9); Immature Granulocytes % 0.2 % (0-4); Lymphocytes # 1.1 K/mcL (0.6-4.6); Lymphocytes % 21.7 %; Mean Corpuscular HGB Conc 33.9 g/dL (31.6-35.5); Mean Corpuscular Hemoglobin 31.1 pg (28.0-33.3); Mean Corpuscular Volume 91.7 fL (83.0-100.0); Mean Platelet Volume 9.2 fL (9.4-12.4); Monocytes # 0.5 K/mcL (0.0-1.3); Monocytes % 9.8 %; Neutrophils # 3.2 K/mcL (1.6-8.9); Platelet Count 152 K/mcL (140-400); Red Cell Distribution Width 12.7 % (11.5-14.5); Segmented Neutrophils % 65.6 %; White Blood Count 4.9 K/mcL (4.3-11.1)
[2022-02-23 11:43] LABS: Prothrombin Time 11.4 Seconds (9.4-12.1)
[2022-02-23 11:46] LABS: Activated Partial Thrombo Time 26.4 Seconds (26.0-36.0)
[2022-02-23 11:58] LABS: BUN/Creatinine Ratio 25 (6-26); Blood Urea Nitrogen 19 mg/dL (8-23); Calcium 9.1 mg/dL (8.6-10.3); Carbon Dioxide 25 mEq/L (23-29); Chloride 105 mEq/L (98-107); Glucose 142 mg/dL (70-105); Osmolality,Calculated 291 (280-300); Sodium 138 mEq/L (136-145); eGFR For African Americans > 60 (> 60); eGFR For Non-African Americans > 60 (> 60)
[2022-02-23 11:59] LABS: Troponin I < 0.03 ng/mL (< 0.04)
[2022-02-23] MEDS ORDERED: Naloxone 0.4 MG/ML INJ IVP PRN (12:11)
[2022-02-23 12:39] LABS: Chol/HDL Ratio 3.4 (0-4.9); Cholesterol 141 mg/dL (< 200); HDL Cholesterol 41 mg/dL (40-59); LDL Cholesterol,Calculated 65 mg/dL (< 100); Triglycerides 176 mg/dL (< 150)
[2022-02-23 12:56] LABS: Estimated Average Glucose 114 mg/dl; Hemoglobin A1C 5.6 %
[2022-02-23] MEDS ORDERED: Perflutren Lipid Microsphere 1.3 ML in 0.9 % Sodium Chloride 8.7 ML IVP PRN (13:44)
[2022-02-23 15:24] LABS: Magnesium 2.1 mg/dL (1.6-2.6); Troponin I < 0.03 ng/mL (< 0.04)
[2022-02-23] MEDS: *HR* Heparin 5,000 UNIT/ML VIAL SQ SCH (17:21)
[2022-02-23] MEDS: Budesonide/Formoterol 80/4.5 1 PUFF INH IH SCH (20:16)
[2022-02-23] MEDS: Metoprolol XL (24 HR) Succ 25 MG TAB.ER.24H PO SCH (22:56)
[2022-02-23] MEDS: Potassium Citrate 10 MEQ TABLET.ER PO SCH (23:04)
[2022-02-23] MEDS: Acetaminophen 325 MG TABLET PO PRN (23:40)
[2022-02-24] MEDS: Acetaminophen 325 MG TABLET PO PRN (05:40)
[2022-02-24] MEDS: *HR* Heparin 5,000 UNIT/ML VIAL SQ SCH ×2 (05:51→15:58)
[2022-02-24] MEDS ORDERED: Regadenoson 0.4 MG/5 ML SYRINGE IVP ONE (06:45)
[2022-02-24] MEDS: Budesonide/Formoterol 80/4.5 1 PUFF INH IH SCH ×2 (07:45→20:46)
[2022-02-24] MEDS ORDERED: ALPRAZolam 0.25 MG TABLET PO ONE (07:57)
[2022-02-24] MEDS: Metoprolol XL (24 HR) Succ 25 MG TAB.ER.24H PO SCH ×2 (10:23→20:24)
[2022-02-24] MEDS: allopurinoL 300 MG TABLET PO SCH (11:20)
[2022-02-24] MEDS: Potassium Citrate 10 MEQ TABLET.ER PO SCH ×2 (11:20→20:24)
[2022-02-24] MEDS: Aspirin 81 MG TAB.CHEW PO SCH (11:20)
[2022-02-25] MEDS: *HR* Heparin 5,000 UNIT/ML VIAL SQ SCH ×2 (05:18→17:26)
[2022-02-25] MEDS: Budesonide/Formoterol 80/4.5 1 PUFF INH IH SCH ×2 (07:36→20:42)
[2022-02-25] MEDS: Potassium Citrate 10 MEQ TABLET.ER PO SCH ×2 (10:00→21:15)
[2022-02-25] MEDS: Metoprolol XL (24 HR) Succ 25 MG TAB.ER.24H PO SCH ×2 (10:00→21:16)
[2022-02-25] MEDS: allopurinoL 300 MG TABLET PO SCH (10:00)
[2022-02-25] MEDS: Aspirin 81 MG TAB.CHEW PO SCH (10:00)
[2022-02-25] MEDS: Acetaminophen 325 MG TABLET PO PRN (21:20)
[2022-02-26] MEDS: *HR* Heparin 5,000 UNIT/ML VIAL SQ SCH (05:33)
[2022-02-26 07:06] VITALS: BP 119/72; PULSE 69; TEMP 97.8; O2SAT 97
[2022-02-26] MEDS: Budesonide/Formoterol 80/4.5 1 PUFF INH IH SCH (07:41)
[2022-02-26] MEDS: allopurinoL 300 MG TABLET PO SCH (09:54)
[2022-02-26] MEDS: Metoprolol XL (24 HR) Succ 25 MG TAB.ER.24H PO SCH (09:54)
[2022-02-26] MEDS: Potassium Citrate 10 MEQ TABLET.ER PO SCH (09:54)
[2022-02-26] MEDS: Aspirin 81 MG TAB.CHEW PO SCH (09:55)
== END 2022-02-26 10:08 | disposition home or self-care (01) ==
LOC: EMEROOARM 10:24 → 3BNU 10:24 → SUATTDRO 13:28 → 3BNU 14:07
PROVIDERS: ADMIT Internal Medicine; ATTEND Internal Medicine